=== PATIENT | female | born 1955 | race Caucasian/White ===

== ENCOUNTER 2017-05-16 08:01 | Day surgery (SDC) | payer OTHER ==
[~2017-05-16] VITALS: Ht 168.9 cm; Wt 86.7 kg
[~2017-05-16 08:01] MED LIST: ASCO10004 PO; CHOL2000 PO; LEVO50TA5 PO; MAGN400T7 PO; MULT-750 PO; OMEG300C PO; ONDA4TAB7 PO; OXYC1TAB7 PO; VIT1TABL34 PO; [UNRECOGNIZED DRUG - OTHER] PO; [UNRECOGNIZED DRUG - OTHER] PO; [UNRECOGNIZED DRUG - OTHER] PO; [UNRECOGNIZED DRUG - OTHER] PO
[2017-05-16] MEDS ORDERED: LACTATED RINGERS 1,000 ML IV SCH (08:34)
[2017-05-16] MEDS ORDERED: MIDAZOLAM 1 MG/ML, 2ML ONE (09:23)
[2017-05-16] MEDS ORDERED: ALBU18HF INH (09:23)
[2017-05-16] MEDS ORDERED: FENTANYL PF 100 MCG/2ML ONE ×2 (09:23→11:54)
[2017-05-16 09:24] VITALS: BP 104/70
[2017-05-16] MEDS ORDERED: PROPOFOL 50 ML ONE ×2 (10:34→11:17)
[2017-05-16] MEDS ORDERED: KETOROLAC 30 MG/1 ML ONE (10:36)
[2017-05-16] MEDS ORDERED: CEFAZOLIN 1,000 MG ONE ×2 (10:58)
[2017-05-16] MEDS ORDERED: ONDANSETRON 2MG/ML, 2ML ONE (10:58)
[2017-05-16] MEDS ORDERED: FENTANYL PF 100 MCG/2ML IV PRN (11:30)
[2017-05-16] MEDS ORDERED: MIDAZOLAM 1 MG/ML, 2ML IV PRN (11:30)
[2017-05-16] MEDS ORDERED: ONDANSETRON 2MG/ML, 2ML IVPush PRN (11:30)
[2017-05-16] MEDS ORDERED: DIAZEPAM 5 MG/ML, 2ML IVPush PRN (11:30)
[2017-05-16] MEDS ORDERED: METOPROLOL 1 MG/ML, 5ML IV PRN (11:30)
[2017-05-16] MEDS ORDERED: ACETAMINOPHEN 325 MG TABLET PO PRN (11:30)
[2017-05-16] MEDS ORDERED: MEPERIDINE/PF 25MG/0.5ML IVPush PRN (11:30)
[2017-05-16] MEDS ORDERED: PROMETHAZINE 25 MG/ML, 1ML IV PRN (11:30)
[2017-05-16] MEDS ORDERED: hydrALAzine 20 MG/ML, 1ML IV PRN (11:30)
[2017-05-16] MEDS ORDERED: OXYcodone 5 MG/5 ML ORAL.SOL UDC PO PRN (11:30)
[2017-05-16] MEDS ORDERED: ALBUTEROL SULFATE 2.5 MG/3 ML NPPB PRN (11:30)
[2017-05-16] MEDS ORDERED: LABETALOL 5MG/ML, 20ML IV PRN (11:30)
[2017-05-16] MEDS ORDERED: EPHEDRINE 50 MG/ML, 1ML IVPush PRN (11:30)
[2017-05-16] MEDS ORDERED: ACETAMINOPHEN 650 MG/20.3 ML UDC ONE (11:54)
[2017-05-16] MEDS ORDERED: OXYcodone 5 MG/5 ML ORAL.SOL UDC ONE (11:54)
== END 2017-05-16 15:20 ==
LOC: OUT 08:01
PROVIDERS: ATTEND Orthopaedic Surgery
DX: T84.84XA Pain due to internal orthopedic prosthetic devices, implants and grafts, initial encounter (principal); M25.871 Other specified joint disorders, right ankle and foot; M24.574 Contracture, right foot; M62.461 Contracture of muscle, right lower leg; Y83.8 Other surgical procedures as the cause of abnormal reaction of the patient, or of later complication, without mention of misadventure at the time of the procedure; Y92.89 Other specified places as the place of occurrence of the external cause; E03.9 Hypothyroidism, unspecified; Z88.8 Allergy status to other drugs, medicaments and biological substances
CPT/HCPCS: 27641; 28270; 28899; 73600; 76000; 93005; C1713; J0690; J1885; J2250; J2405; J2704; J3010; J7120